=== PATIENT | female | born 1990 | race Caucasian/White ===

== ENCOUNTER → 2016-08-02 | Day surgery (SDC) | payer BC ==
[~2016-08-02] MED LIST: MOTRIN800 MG PO; NORCO 5-325 TA1 EACH PO
--- NOTE | ~2016-08-02 | HP ---
PATIENT'S NAME: V[facility]ON [facility]PS[facility] AGE: 26 Y [address] ROOM: [place] [address] LOCATION: [facility] [place] ADMIT DATE: 08/02/2016 History & Physical DISCHARGE DATE: FAMILY PHYSICIAN: Yoana Strong DO ATTENDING PHYSICIAN: CORAZON NICOLAS DATE OF SERVICE: CHIEF COMPLAINT: Pelvic pain. HISTORY OF PRESENT ILLNESS: The patient is a 26-year-old G1 who presented to the ER this afternoon complaining of pelvic pain on the right side that started around 5 o'clock this morning that woke her up and has not gotten better until she was given Fentanyl in the OR. She denies any fevers. She denies any nausea or vomiting. She reports that she was found to be about 2 weeks ago. Her quant was 193, 2 days later it was 238, and then 4 days after the initial one, it was 160, and it was felt she was having a spontaneous . She was supposed to have repeat quant tomorrow. She had a quant upon arrival to the ER which was found to be 64. She then had an ultrasound that showed a large amount of free fluid in the pelvis consistent with blood. PAST MEDICAL HISTORY: None. PAST SURGICAL HISTORY: 1. 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 2. Tonsillectomy. 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 Denies a history of gonorrhea and chlamydia infections in the past. FAMILY HISTORY: Noncontributory. SOCIAL HISTORY: She denies tobacco, alcohol, or drug use. 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 REVIEW OF SYSTEMS: Negative except as noted in HPI. MEDICATIONS: PATIENT'S NAME: VERNON [facility]PS[facility] AGE: 26 Y [address] ROOM: [place] [address] LOCATION: [facility] [place] ADMIT DATE: 08/02/2016 History & Physical DISCHARGE DATE: FAMILY PHYSICIAN: Yoana Strong DO ATTENDING PHYSICIAN: CORAZON NICOLAS. ALLERGIES: NO KNOWN MEDICAL ALLERGIES. PHYSICAL EXAMINATION: VITAL SIGNS: Initial blood pressure is 185/113, pulse 101, respiration rate of 24, SpO2 of 98%. GENERAL: She is alert and oriented. She is in no acute distress. HEART: Regular rate and rhythm. LUNGS: Clear to auscultation bilaterally. ABDOMEN: Soft, tender to palpation in the right lower quadrant. No rebound. No guarding. EXTREMITIES: Nontender, no edema. LABORATORY WORK: White blood cell count of 14.8, hemoglobin of 12.3, platelets of 383. She had an hCG quant of 64. Creatinine of 0.8. Rest of the CMS is unremarkable. ASSESSMENT: The patient is a 26-year-old G1 with suspected ruptured ectopic . PLAN: I discussed with the patient her laboratory findings and her ultrasound findings. Given this and her pain, I recommend we proceed to the OR for laparoscopy, evacuation of hemoperitoneum, and possible salpingectomy, ovarian cystectomy, or oophorectomy depending on findings, and I did discuss with the patient that I may get in there and not be able to find the source of her bleeding. If there does appear to be a in the tube, I may attempt to open the tube and remove the that way. I discussed with the patient the risks of bleeding, infection, damage to surrounding organs and tissues, including bowel, bladder, blood vessels, ureters, and nerves. I also discussed the risk of needing additional procedures, hospitalizations due to any complications. I also discussed the risk of possibility of needing an open operation if the procedure cannot be done laparoscopically. The patient and significant other have no questions and gave consent. MD BAILEY ROY/nestor PATIENT'S NAME: V[facility]ON [facility] AGE: 26 Y [address] ROOM: [place] [address] LOCATION: [facility] [place] ADMIT DATE: 08/02/2016 History & Physical DISCHARGE DATE: FAMILY PHYSICIAN: Yoana Strong DO ATTENDING PHYSICIAN: CORAZON NICOLAS /[id number] D: 030 T: 923 HISTORY & PHYSICAL
--- NOTE | ~2016-08-02 | ER ---
PATIENT'S NAME: VERNON SIMPSON [facility] AGE: 26 Y [address] ROOM: [place] [id number] LOCATION: [facility] [place] ADMIT DATE: 08/02/2016 ER/Outpatient Report DISCHARGE DATE: FAMILY PHYSICIAN: Yoana Strong DO ATTENDING PHYSICIAN: CORAZON LEGGETT Time of Arrival: 1203 hours. Time Seen: 1322 hours. IDENTIFICATION: A 26-year-old female. CHIEF COMPLAINT: Abdominal pain. HISTORY OF PRESENT ILLNESS: The patient was not seen in a timely fashion due to the busy nature of the ER and she had been in the waiting room until 1239 hours. The patient said she began having pain at 5:00 a.m. this morning in her lower abdomen. She said she had a miscarriage 2 weeks ago, was seen in [place] by Dr. Strong. She is a G1, P0. She had a quantitative beta-hCG initially of 193, 2 days later of 238, 4 days later of 160 and that will be 1 week ago tomorrow, she is due for another quantitative beta-hCG tomorrow. She has not had an ultrasound. Her last normal menstrual period was in April 2016, she started bleeding on July 06. She does have a little bit of spotting, but no heavy bleeding. She is not lightheaded. She took ibuprofen 400 mg at 7:00 a.m. Her last meal, she had something to drink at 1130 hours and she ate at 10:00 a.m. PAST MEDICAL HISTORY: ALLERGIES: NO KNOWN DRUG ALLERGIES. CURRENT MEDICATIONS: vitamins. 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 PRIOR SURGERIES: Tonsillectomy and left nephrectomy in 08/1999. SOCIAL HISTORY: The patient lives in [place]. She is . Tobacco use, denies. PATIENT'S NAME: VERNON SIMPSON [facility] AGE: 26 Y [address] ROOM: [place], [place] [address] LOCATION: [facility] [place] ADMIT DATE: 08/02/2016 ER/Outpatient Report DISCHARGE DATE: FAMILY PHYSICIAN: Yoana Strong DO ATTENDING PHYSICIAN: CORAZON LEGGETT Alcohol use, occasional. Drug use, denies. FAMILY HISTORY: No pertinent family history identified. SOCIAL HISTORY: The patient works in [employer] at [employer]. REVIEW OF SYSTEMS: All systems reviewed and negative other than what is noted in the HPI. PHYSICAL EXAMINATION: VITAL SIGNS: Weight 146.2 kilos. Blood pressure 185/113, pulse 101, respirations 24, and saturations 98%. GENERAL: A 26-year-old female, in obvious distress with significant pain. HEENT: Head: Normocephalic, atraumatic. Ears: TMs translucent, both ears. Nose: Mucosa pink, no lesions. Mouth: No lesions. Pharynx benign. NECK: Supple. No lymphadenopathy. LUNGS: Clear to auscultation. HEART: Regular rate and rhythm. ABDOMEN: Soft. Tender to palpation in the lower abdomen, more on the right abdomen. No rebound or guarding. No CVA tenderness. EXTREMITIES: No edema. SKIN: [place], warm, and dry. No lesions or rashes noted. EMERGENCY DEPARTMENT COURSE: An IV was initiated. Fentanyl was given for pain. Currently, she is not having any nausea. Hemoglobin stable at 12.3, hematocrit 38.8, platelets 383, and white count 14.8. Chemistry panel is unremarkable. Quantitative beta-hCG is 64. Clot has been drawn. Ultrasound identifiable intrauterine , large amount of complex fluid, suspicious of hemorrhage is present. IMPRESSION AND PLAN: Ruptured ectopic . PLAN: Dr. Leggett, PATTERN GATER, was consulted immediately and planned for laparoscopic evaluation. The patient remained hemodynamically stable in the emergency room. Her hemoglobin was stable initially and her blood pressure was 182/94, elevated possibly secondary to pain, although she was receiving fentanyl 150 mcg for pain control. PATIENT'S NAME: VERNON SIMPSON [facility] AGE: 26 Y [address] ROOM: [place], [place] [address] LOCATION: [facility] [place] ADMIT DATE: 08/02/2016 ER/Outpatient Report DISCHARGE DATE: FAMILY PHYSICIAN: Yoana Strong DO ATTENDING PHYSICIAN: CORAZON LEGGETT MD CAR/modl /[id number] d: 08/03/16 1821 t: 08/07/16 0758, OUTPATIENT REPORT
--- NOTE | ~2016-08-02 | OR ---
PATIENT'S NAME: VERNON SIMPSON [facility] AGE: 26 Y [address] ROOM: [place] [address] LOCATION: [facility] [place] ADMIT DATE: 08/02/2016 OR/Procedure Report DISCHARGE DATE: FAMILY PHYSICIAN: Yoana Strong DO ATTENDING PHYSICIAN: PEDRO LEGGETT SURGEON: Pedro Leggett MD CONTINUOUS STILL OPERATOR: None. DATE OF PROCEDURE: 08/02/2016 PREOPERATIVE DIAGNOSES: Hemoperitoneum and suspected ectopic . POSTOPERATIVE DIAGNOSIS: Right tubal ectopic . PROCEDURE PERFORMED: Laparoscopic right salpingectomy and evacuation of hemoperitoneum. ANESTHESIA: General. FINDINGS: Right fallopian tube dilated consistent with ectopic with bleeding from the fimbriated end. 500 mL of hemoperitoneum upon entering the abdomen, normal left fallopian tube and ovary. Normal right ovary. Normal uterus. ESTIMATED BLOOD LOSS: 75 mL. COMPLICATIONS: None. INDICATIONS: The patient is a 26-year-old, G1, who presented to the ER complaining of abdominal pain. Her quant was checked and found to be 64. She previously had a quant prior of 160. She had an ultrasound done that showed hemoperitoneum. She was counseled about the procedure. Please see my H and P for that. DESCRIPTION OF PROCEDURE: The patient was taken to the operating room where she was placed under general anesthesia without complication. She was then placed in dorsal lithotomy position. She was prepped and draped in the usual sterile fashion. A speculum was placed in the patient's vagina and a Hulka tenaculum was placed through the cervix. The speculum was removed. Gloves were changed. Attention was then placed to the patient's abdomen. 0.5% Marcaine with epinephrine was injected infraumbilically. A 5 mm incision was made. Veress needle was used to enter the abdomen and insufflate, however, opening pressure was greater than 15 three times. The patient's direct entry under direct visualization with a laparoscope was attempted, however, the 5 mm trocar was too short. A longer trocar was used and entry into the abdomen was made. The abdomen was insufflated to 17 mmHg. The patient was placed in PATIENT'S NAME: VERNON SIMPSON [facility] AGE: 26 Y [address] ROOM: [place], [place] [address] LOCATION: [facility] [place] ADMIT DATE: 08/02/2016 OR/Procedure Report DISCHARGE DATE: FAMILY PHYSICIAN: Yoana Strong DO ATTENDING PHYSICIAN: PEDRO LEGGETT. Evaluation of the pelvis showed the above findings. Of note, the patient did have short IP ligaments and her ovaries and tubes were not adhered but pulled back higher toward the pelvic brim. In the left lower quadrant 2 cm lateral and 2 cm superior to the anterior superior iliac spine, 0.5% Marcaine with epinephrine was injected. A 5 mm incision was made. A 5 mm trocar was placed. The same was performed on the right only with a 10/11 trocar. The hemoperitoneum was evacuated with suction. The right fallopian tube was then grasped. It was ligated and cut off with LigaSure device along its entirety. Hemostasis was noted. It was then removed through the 11 port in a bag. Once again, hemostasis was noted. There was a small area of the epiploica of the bowel that prior to using LigaSure device appeared to have adherent clot. The bowel itself appeared normal. No bleeding was noted. All trocars were then removed. The skin was closed with 4-0 Monocryl in a subcuticular fashion, Steri-Strips and Band-Aids. Instrument, sponge, and needle counts were correct prior to abdominal closure at conclusion of the case. DISPOSITION: The patient was stable to PACU. MD BAILEY ROY/nestor /[id number] d: 08/02/16 2144 t: 08/19/16 0925, OPERATIVE SUMMARY
[2016-08-02 13:51] LABS: BASOPHIL % 0.3 %; EOSINOPHIL # 0.2 K/uL (0.0-0.5); EOSINOPHIL % 1.3 %; HEMATOCRIT 38.8 % (33.0-46.0); HEMOGLOBIN 12.3 g/dL (11.0-15.0); IMMATURE GRANULOCYTE # 0.1 K/uL (0.0-0.3); IMMATURE GRANULOCYTE % 0.4 %; LYMPHOCYTE % 27.4 %; MCH 26.9 pg (27.0-34.0); MCHC 31.7 gm/dL (32.0-36.5); MCV 84.7 fl (83.0-98.0); MONOCYTE # 0.8 K/uL (0.0-1.0); MONOCYTE % 5.2 %; MPV 9.5 fl (9.4-12.4); NEUTROPHIL # (ANC) 9.7 K/uL (1.8-7.8); NEUTROPHIL % 65.4 %; NRBC % 0 /100WBC (0-0.00); PLATELET COUNT 383 K/uL (150-450); RBC 4.58 M/uL (3.50-5.00); RDW-CV 15.6 % (11.9-14.6); WBC 14.8 K/uL (4.0-11.0)
[2016-08-02 14:12] LABS: ALBUMIN 3.3 gm/dL (3.5-5.0); ALK PHOS 94 IU/L (33-138); ALT 20 IU/L (12-78); ANION GAP 12.3 (10.0-19.0); AST 10 IU/L (10-40); BLOOD UREA NITROGEN 12 mg/dL (6-24); CALCIUM 8.8 mg/dL (8.5-10.5); CHLORIDE 104 mMol/L (96-110); CO2 29 mMol/L (22-32); CREATININE 0.8 mg/dL (0.5-1.1); ESTIMATED GFR (MDRD EQUATION) > 60; POTASSIUM 4.3 mMol/L (3.7-5.1); SODIUM 141 mMol/L (135-145); TOTAL BILIRUBIN 0.3 mg/dL (0.0-1.5); TOTAL PROTEIN 7.5 g/dL (6.0-8.4)
== END | disposition disaster alternative care site (69) ==
LOC: GMED 12:03 → GSDC 17:31 → GOBS 17:32 → GSDC 17:32
PROVIDERS: Family Medicine
PROC: 10T24ZZ Resection of Products of Conception, Ectopic, Percutaneous Endoscopic Approach (ICD-10-PCS; principal; 2016-08-02)
PROC: 0UB54ZZ Excision of Right Fallopian Tube, Percutaneous Endoscopic Approach (ICD-10-PCS; 2016-08-02)
DX: O00.90 Unspecified ectopic pregnancy without intrauterine pregnancy (principal); Z98.890 Other specified postprocedural states
CPT/HCPCS: J2405; J3010